=== PATIENT | female | born 1990 | race American Indian/Alaskan Native ===

== ENCOUNTER 2022-01-17 05:19 | Emergency (ER) | payer SELFPAY ==
[2022-01-17] MEDS ORDERED: SODIUM CHLORIDE 0.9% 1000 ML 1,000 ML IV ONE (06:18)
[2022-01-17] MEDS ORDERED: ACETAMINOPHEN 500 MG TAB PO ONE (07:10)
--- NOTE | 2022-01-17 07:14 | Emergency Department Report ---
ED General Adult HPI - General Chief complaint: Arrhythmia/Palpitations Stated complaint: RAPID HEART BEAT Time Seen by Provider: 01/17/22 06:20 Source: patient, EMS Mode of arrival: Stretcher Limitations: No Limitations - History of Present Illness Initial comments: Patient is 31 years old female with no significant past medical history. Patient presented to the ER complaining of palpitation. Patient stated that she was sleeping well when her woke her up around 3:00 this morning telling her that she is breathing fast. She stated that she checked her apple watch and found that her heart rate was 138. Patient stated that she had fever the day before. She also complaining of mild cough and shortness of breath. She denied any abdominal pain, nausea or vomiting. - Related Data Allergies Allergy/AdvReac Type Severity Reaction Status Date / Time No Known Allergies Allergy Verified 01/17/22 06:49 ED Review of Systems ROS: Stated complaint: RAPID HEART BEAT Other details as noted in HPI Comment: All other systems reviewed and negative Constitutional: chills, fever Respiratory: cough. denies: shortness of breath, SOB with exertion, SOB at rest Cardiovascular: palpitations. denies: chest pain Gastrointestinal: denies: abdominal pain, nausea, vomiting, diarrhea, constipation, hematemesis, melena, hematochezia Musculoskeletal: denies: back pain Neurological: denies: headache, weakness, numbness, paresthesias, confusion, abnormal gait ED Past Medical Hx - Past Medical History Previous Medical History?: No - Surgical History Past Surgical History?: Yes Additional Surgical History: X2 - Social History Smoking Status: Never Smoker Substance Use Type: None ED Physical Exam - General Limitations: No Limitations General appearance: alert, in no apparent distress, anxious - Head Head exam: Present: atraumatic, normocephalic, normal inspection - Eye Eye exam: Present: normal appearance - ENT ENT exam: Present: mucous membranes dry - Neck Neck exam: Present: normal inspection, full ROM. Absent: tenderness, m eningismus, lymphadenopathy, thyromegaly - Respiratory Respiratory exam: Present: normal lung sounds bilaterally - Cardiovascular Cardiovascular Exam: Present: tachycardia - GI/Abdominal GI/Abdominal exam: Present: soft, normal bowel sounds. Absent: distended, tenderness, guarding, rebound, rigid, organomegaly, mass, bruit, pulsatile mass, hernia - Extremities Exam Extremities exam: Present: normal inspection, full ROM, normal capillary refill. Absent: tenderness, pedal edema, joint swelling, calf tenderness - Back Exam Back exam: Present: normal inspection, full ROM. Absent: CVA tenderness (R), CVA tenderness (L) - Neurological Exam Neurological exam: Present: alert, oriented X3, CN II-XII intact, normal gait, reflexes normal. Absent: motor sensory deficit - Psychiatric Psychiatric exam: Present: normal mood - Skin Skin exam: Present: warm, intact, normal color ED Course Vital Signs 01/17/22 01/17/22 01/17/22 05:59 06:00 06:16 Temperature Pulse Rate 136 H 130 H 131 H Respiratory 19 18 25 H Rate Blood Pressure 118/61 117/60 O2 Sat by Pulse 99 98 98 Oximetry 01/17/22 01/17/22 01/17/22 06:30 06:39 06:46 Temperature 99.9 F H Pulse Rate 125 H 138 H 127 H Respiratory 20 18 31 H Rate Blood Pressure 110/55 106/68 112/51 O2 Sat by Pulse 98 100 98 Oximetry 01/17/22 01/17/22 01/17/22 07:00 07:16 07:30 Temperature Pulse Rate 122 H 121 H 130 H Respiratory 40 H 41 H 22 Rate Blood Pressure 112/59 110/53 117/59 O2 Sat by Pulse 99 97 97 Oximetry 01/17/22 01/17/22 01/17/22 07:46 08:00 08:16 Temperature Pulse Rate 123 H 119 H 114 H Respiratory 16 21 11 L Rate Blood Pressure 114/50 129/59 121/59 O2 Sat by Pulse 99 97 98 Oximetry 01/17/22 01/17/22 01/17/22 08:30 08:46 09:00 Temperature Pulse Rate 116 H 114 H 105 H Respiratory 19 25 H 23 Rate Blood Pressure 116/62 112/54 111/58 O2 Sat by Pulse 98 97 96 Oximetry 01/17/22 01/17/22 01/17/22 09:16 09:30 09:46 Temperature Pulse Rate 112 H 110 H 111 H Respiratory 24 24 21 Rate Blood Pressure 116/56 120/61 109/57 O2 Sat by Pulse 98 98 97 Oximetry 01/17/22 01/17/22 01/17/22 10:00 10:16 10:23 Temperature 100.4 F H Pulse Rate 108 H 105 H Respiratory 24 22 Rate Blood Pressure 99/63 119/64 O2 Sat by Pulse 99 98 Oximetry 01/17/22 01/17/22 01/17/22 10:30 10:46 11:00 Temperature Pulse Rate 117 H 103 H 102 H Respiratory 30 H 21 35 H Rate Blood Pressure 119/72 121/66 137/78 O2 Sat by Pulse 98 99 98 Oximetry 01/17/22 01/17/22 01/17/22 11:16 11:30 11:46 Temperature Pulse Rate 101 H 106 H 100 H Respiratory 31 H 21 26 H Rate Blood Pressure 130/72 146/74 127/66 O2 Sat by Pulse 97 98 99 Oximetry 01/17/22 01/17/22 01/17/22 12:00 12:16 12:30 Temperature Pulse Rate 102 H 93 H 100 H Respiratory 21 26 H 19 Rate Blood Pressure 131/72 134/73 113/66 O2 Sat by Pulse 99 98 99 Oximetry 01/17/22 12:34 Temperature 99.5 F Pulse Rate Respiratory Rate Blood Pressure O2 Sat by Pulse Oximetry ED Medical Decision Making - Lab Data Result diagrams: 01/17/22 07:11 01/17/22 07:11 - Radiology Data Radiology results: report reviewed - Medical Decision Making Patient is 31 years old female with no significant past medical history. Carmen brady presented to the ER complaining of palpitation. Patient stated that she was sleeping well when her woke her up around 3:00 this morning telling her that she is breathing fast. She stated that she checked her apple watch and found that her heart rate was 138. Patient stated that she had fever the day before. She also complaining of mild cough and shortness of breath. She denied any abdominal pain, nausea or vomiting. Patient EKG shows sinus tachycardia. Chest x-ray is negative. Labs reviewed and is unremarkable. Patient found to be febrile. Patient received Tylenol and Motrin and heart rate now is in the 80s. Patient stated that she is feeling better and she is ready to go home. I believe patient symptoms most likely viral syndrome. Patient advised to follow-up with her primary care physician in the next 2 to 3 days and to return to the ER if she develop any new symptoms. Critical care attestation.: If time is entered above; I have spent that time in minutes in the direct care of this critically ill patient, excluding procedure time. ED Disposition Clinical Impression: Palpitation, Viral syndrome Disposition: HOME / SELF CARE / HOMELESS Is pt being admited?: No Condition: Stable Instructions: Viral Respiratory Infection, [id number] Referrals: SHERRY ESPINAL MD [Primary Care Provider] - 3-5 Days
[2022-01-17 07:42] LABS: Bilirubin,Urine NEG (Negative); Blood,Urine LG (Negative); Color,Urine Colorless (Yellow); Mucus,Urine FEW /HPF; Protein,Urine <15 mg/dL mg/dL (Negative); Urobilinogen,Urine < 2.0 mg/dL (<2.0)
[2022-01-17 07:52] LABS: BUN/Creatinine Ratio 13; Basophils % (Auto) 0.3 % (0.0-1.8); Blood Urea Nitrogen 12 mg/dL (7-17); Calcium 8.8 mg/dL (8.4-10.2); Eosinophils # (Auto) 0.3 K/mm3 (0.0-0.4); Eosinophils % (Auto) 4.2 % (0.0-4.3); Hematocrit 32.6 % (30.3-42.9); Hemoglobin 10.9 gm/dl (10.1-14.3); Hemolysis Index 1; Lymphocytes # (Auto) 0.4 K/mm3 (1.2-5.4); Lymphocytes % (Auto) 5.6 % (13.4-35.0); Mean Corpuscular HGB Conc 34 % (30-34); Mean Corpuscular Volume 87 fl (79-97); Monocytes # (Auto) 0.8 K/mm3 (0.0-0.8); Monocytes % (Auto) 12.1 % (0.0-7.3); Platelet Count 181 K/mm3 (140-440); Red Blood Count 3.77 M/mm3 (3.65-5.03); Red Cell Distribution Width 13.4 % (13.2-15.2)
--- NOTE | 2022-01-17 08:29 | XRay Report ---
CHEST 1 VIEW 01/17/2022 8:05 AM INDICATION / CLINICAL INFORMATION: chest pain. COMPARISON: None available. FINDINGS: SUPPORT DEVICES: None. HEART / MEDIASTINUM: No significant abnormality. LUNGS / PLEURA: No significant pulmonary abnormality. No significant pleural effusion. No pneumothora x. ADDITIONAL FINDINGS: No significant additional findings. IMPRESSION: 1. No acute abnormality of the chest. Signer Name: Gabriel Harper MD Signed: 01/17/2022 8:24 AM Workstation Name: [id number]
[2022-01-17] MEDS ORDERED: IBUPROFEN 600 MG TAB PO ONE (10:24)
[2022-01-17 13:53] VITALS: BP 124/70
--- NOTE | 2022-01-20 18:36 | Electrocardiograph Report ---
[facility] Test Date: 2022-01-17 Test Time: 05:54:06 Pat Name: YU GUTIERRES Department: Room: Gender: F Regional Project Manager: YANNI : 1990 Requested By: JANINA MARTE Order Number: [id number] Reading MD: Srini Navarro Measurements Intervals [place] Rate: 127 P: 84 MA: 154 QRS: 49 QRSD: 82 T: 17 QT: 298 QTc: 434 Interpretive Statements Sinus tachycardia No previous ECG available for comparison Electronically Signed On 01-20-2022 18:35:36 EDT by Srini Navarro
== END 2022-01-17 13:54 | disposition home or self-care (01) ==
LOC: ED 05:19
DX: B34.9 Viral infection, unspecified (principal); R00.2 Palpitations
CPT/HCPCS: 36415; 71045; 80048; 81001; 84703; 85025; 93005; 96360; 99284; J7030